=== PATIENT | female | born 1995 | race Caucasian/White ===

== ENCOUNTER 2024-05-27 21:52 | Inpatient (IN) | payer OTHER ==
[~2024-05-27] VITALS: Ht 165.1 cm; Wt 202.8 kg
[2024-05-27 22:17] VITALS: BP_SYST 124; PULSE 100; RESP 20; TEMP 98; O2SAT 97
[2024-05-28 01:10] LABS: BASOPHILS # (AUTO) 0.1 K/uL (0.0-0.2); BASOPHILS % (AUTO) 0.5 % (0.0-2.0); EOSINOPHILS # (AUTO) 0.3 K/uL (0.0-0.4); EOSINOPHILS % (AUTO) 2.8 % (0.0-4.0); HEMATOCRIT 39.5 % (36-48); HEMOGLOBIN 13.4 g/dL (12.0-16.0); LYMPHOCYTES # (AUTO) 2.9 K/uL (1.0-5.5); LYMPHOCYTES % (AUTO) 27.3 % (20.5-51.5); MEAN CORPUSCULAR HEMOGLOBIN 29 pg (27-31); MEAN CORPUSCULAR HGB CONC 34 % (32-36); MEAN CORPUSCULAR VOLUME 84 fL (79.0-98.0); MONOCYTES # (AUTO) 0.7 K/uL (0.0-1.0); MONOCYTES % (AUTO) 6.5 % (1.7-9.3); NEUTROPHILS # (AUTO) 6.8 K/uL (1.8-7.7); NEUTROPHILS % (AUTO) 62.9 % (40.0-70.0); PLATELET COUNT (AUTO) 259 K/uL (130-430); RED BLOOD CELL COUNT(AUTO) 4.69 MIL/uL (4.2-6.2); RED CELL DISTRIBUTION WIDTH 15.2 % (9.0-15.0); WHITE BLOOD COUNT (AUTO) 10.7 K/uL (4.8-10.8)
[2024-05-28 01:28] LABS: ALBUMIN 3.2 g/dL (3.4-4.8); BILIRUBIN,DIRECT 0.1 mg/dL (0.0-0.3); CALCIUM 8.3 mg/dL (8.4-11.0); CREATININE 0.73 mg/dL (0.55-1.30); POTASSIUM 3.8 mmol/L (3.5-5.1); TOTAL BILIRUBIN 0.4 mg/dL (0.0-1.0); TOTAL PROTEIN, SERUM 6.9 g/dL (6.4-8.3)
[2024-05-28] MEDS ORDERED: INSULIN REGULAR, HUMAN 100 UNITS/ML, 3 ML VIAL (humuLIN R) SUBCUT PRN ×2 (01:45→13:30)
[2024-05-28] MEDS: ACETAMINOPHEN 325 MG TABLET PO PRN (01:47)
[2024-05-28] MEDS: cefTRIAXone 1 GM IVPB PREMIX 50 ML IV ONE (01:48)
[2024-05-28] MEDS: DIPHENHYDRAMINE INJ 50 MG/ML VIAL IVP ONE (02:39)
[2024-05-28] MEDS ORDERED: METF-379 PO (02:46)
[2024-05-28 03:13] VITALS: BP_SYST 144; PULSE 96; RESP 20; TEMP 99; O2SAT 96
[2024-05-28] MEDS: AMPICILLIN SODIUM/SULBACTAM NA 3 GM in NS 100 ML IV SCH (04:02)
[2024-05-28] MEDS: AMPICILLIN SODIUM/SULBACTAM NA 3 GM VIAL ONE (05:18)
[2024-05-28] MEDS ORDERED: AMPICILLIN SODIUM/SULBACTAM NA 3 GM VIAL IM SCH (12:00)
[2024-05-28 12:02] VITALS: BP_SYST 135; PULSE 98; RESP 19; TEMP 98.5; O2SAT 98
[2024-05-28] MEDS ORDERED: DEXTROSE 50% JECT 50 ML DISP.SYRIN IVP PRN (13:30)
[2024-05-28 16:11] VITALS: BP_SYST 140; PULSE 97; RESP 20; TEMP 98.7; O2SAT 98
[2024-05-28] MEDS: NYSTATIN 15 GM TOPICAL POWDER TP ONE (16:57)
[2024-05-28] MEDS: metFORMIN HCL 500 MG TABLET PO SCH (17:08)
[2024-05-28] MEDS ORDERED: NALOXONE HCL 0.4 MG/ML AMP (NARCAN) IVP PRN ×3 (17:30)
[2024-05-28] MEDS: HYDROcodone/ACETAMIN 10-325 MG TAB PO ONE (17:45)
[2024-05-28 19:31] VITALS: BP_SYST 125; PULSE 71; RESP 18; TEMP 96.6; O2SAT 100
[2024-05-28 19:32] VITALS: O2SAT 97
[2024-05-28] MEDS: LACTOBACILLUS RHAMNOSUS GG 1 CAP CAPSULE PO SCH (21:09)
[2024-05-28] MEDS: MICAFUNGIN SODIUM 100 MG in NS 100 ML IV SCH (21:09)
[2024-05-28] MEDS: NYSTATIN 15 GM TOPICAL POWDER TP SCH (21:13)
[2024-05-28 22:39] LABS: HCG,QUAL RESULT NEGATIVE (NEGATIVE)
[2024-05-29] VITALS: BP_SYST 130; PULSE 97; RESP 18; TEMP 96.6; O2SAT 98
[2024-05-29] MEDS: HYDROcodone/ACETAMIN 10-325 MG TAB PO PRN (00:50)
[2024-05-29 09:04] VITALS: BP_SYST 122; PULSE 109; RESP 18; TEMP 97.9; O2SAT 100
[2024-05-29 10:00] VITALS: O2SAT 98
[2024-05-29 12:30] VITALS: BP_SYST 128; PULSE 110; RESP 18; TEMP 98.8; O2SAT 96
[2024-05-29 16:00] VITALS: BP_SYST 130; PULSE 94; RESP 18; TEMP 98.8; O2SAT 96
[2024-05-29 19:46] VITALS: BP_SYST 130; PULSE 74; RESP 20; TEMP 96.9; O2SAT 100
[2024-05-30 00:36] VITALS: BP_SYST 126; PULSE 73; RESP 18; TEMP 97.3; O2SAT 100
[2024-05-30 06:58] LABS: PROTHROMBIN TIME 10.1 SECS (9.5-12.5)
[2024-05-30 07:14] LABS: BASOPHILS # (AUTO) 0.1 K/uL (0.0-0.2); BASOPHILS % (AUTO) 0.5 % (0.0-2.0); EOSINOPHILS # (AUTO) 0.3 K/uL (0.0-0.4); EOSINOPHILS % (AUTO) 2.2 % (0.0-4.0); HEMATOCRIT 39.3 % (36-48); HEMOGLOBIN 12.9 g/dL (12.0-16.0); LYMPHOCYTES % (AUTO) 22.7 % (20.5-51.5); MEAN CORPUSCULAR HEMOGLOBIN 28 pg (27-31); MEAN CORPUSCULAR HGB CONC 33 % (32-36); MEAN CORPUSCULAR VOLUME 84 fL (79.0-98.0); MONOCYTES # (AUTO) 0.8 K/uL (0.0-1.0); MONOCYTES % (AUTO) 6.1 % (1.7-9.3); NEUTROPHILS # (AUTO) 8.9 K/uL (1.8-7.7); NEUTROPHILS % (AUTO) 68.5 % (40.0-70.0); PLATELET COUNT (AUTO) 297 K/uL (130-430); RED BLOOD CELL COUNT(AUTO) 4.66 MIL/uL (4.2-6.2); RED CELL DISTRIBUTION WIDTH 14.6 % (9.0-15.0)
[2024-05-30 07:19] LABS: ALBUMIN 2.8 g/dL (3.4-4.8); CALCIUM 8.6 mg/dL (8.4-11.0); CREATININE 0.81 mg/dL (0.55-1.30); POTASSIUM 3.8 mmol/L (3.5-5.1); TOTAL BILIRUBIN 0.5 mg/dL (0.0-1.0); TOTAL PROTEIN, SERUM 6.9 g/dL (6.4-8.3)
[2024-05-30 08:10] VITALS: BP_SYST 132; PULSE 101; RESP 18; TEMP 97.5; O2SAT 95
[2024-05-30 10:05] VITALS: O2SAT 95
[2024-05-30 12:00] VITALS: BP_SYST 127; PULSE 102; RESP 20; TEMP 99; O2SAT 97
[2024-05-30 16:10] VITALS: BP_SYST 123; PULSE 90; RESP 19; TEMP 98.1; O2SAT 98
[2024-05-30 20:00] VITALS: BP_SYST 140; PULSE 95; RESP 22; TEMP 96.2; O2SAT 97
[2024-05-31 07:50] VITALS: BP_SYST 118; PULSE 97; RESP 20; TEMP 97.2; O2SAT 88
[2024-05-31] MEDS: ONDANSETRON 4 MG ODT TAB PO PRN (09:55)
[2024-05-31] MEDS: PANTOPRAZOLE SODIUM 40 MG TAB PO ONE (09:56)
[2024-05-31 10:10] VITALS: O2SAT 97
[2024-05-31 12:13] VITALS: BP_SYST 120; PULSE 85; RESP 20; TEMP 98.1; O2SAT 98
[2024-05-31 16:00] VITALS: BP_SYST 124; PULSE 80; RESP 18; TEMP 97.5; O2SAT 98
[2024-05-31] MEDS: HYDROcodone/ACETAMIN 5-325 MG TAB (NORCO/ VICODIN) PO PRN (16:30)
[2024-05-31 19:10] VITALS: BP_SYST 110; PULSE 75; RESP 18; TEMP 96.5; O2SAT 97
[2024-05-31 20:00] VITALS: O2SAT 97
[2024-06-01] VITALS (7 sets, daily range): BP systolic 112–141; PULSE 82–91; RESP 15–18; TEMP 96.1–98.2; O2SAT 94–98
[2024-06-01 09:05] LABS: BASOPHILS % (AUTO) 0.2 % (0.0-2.0); EOSINOPHILS # (AUTO) 0.4 K/uL (0.0-0.4); EOSINOPHILS % (AUTO) 3.7 % (0.0-4.0); HEMATOCRIT 40.1 % (36-48); HEMOGLOBIN 13.3 g/dL (12.0-16.0); LYMPHOCYTES # (AUTO) 2.3 K/uL (1.0-5.5); LYMPHOCYTES % (AUTO) 24.1 % (20.5-51.5); MEAN CORPUSCULAR HEMOGLOBIN 28 pg (27-31); MEAN CORPUSCULAR HGB CONC 33 % (32-36); MEAN CORPUSCULAR VOLUME 85 fL (79.0-98.0); MONOCYTES # (AUTO) 0.5 K/uL (0.0-1.0); NEUTROPHILS # (AUTO) 6.4 K/uL (1.8-7.7); PLATELET COUNT (AUTO) 307 K/uL (130-430); RED BLOOD CELL COUNT(AUTO) 4.75 MIL/uL (4.2-6.2); WHITE BLOOD COUNT (AUTO) 9.6 K/uL (4.8-10.8)
[2024-06-01] MEDS: PANTOPRAZOLE SODIUM 40 MG TAB PO SCH (09:21)
[2024-06-01 09:34] LABS: ALBUMIN 2.8 g/dL (3.4-4.8); CALCIUM 8.6 mg/dL (8.4-11.0); CREATININE 0.81 mg/dL (0.55-1.30); POTASSIUM 3.8 mmol/L (3.5-5.1); TOTAL BILIRUBIN 0.4 mg/dL (0.0-1.0); TOTAL PROTEIN, SERUM 6.8 g/dL (6.4-8.3)
[2024-06-01] MEDS ORDERED: DOXY100C5 PO (17:54)
[2024-06-01] MEDS ORDERED: DIF100 PO (17:57)
[2024-06-02] VITALS: BP_SYST 116; PULSE 82; RESP 16; TEMP 96.3; O2SAT 96
[2024-06-02 08:09] VITALS: BP_SYST 142; PULSE 87; RESP 15; TEMP 97.9; O2SAT 95
[2024-06-02 10:00] VITALS: O2SAT 95
[2024-06-02 11:51] VITALS: BP_SYST 135; PULSE 60; RESP 17; TEMP 98.2; O2SAT 100
[2024-06-02 12:21] VITALS: BP_SYST 135; PULSE 60; RESP 17; TEMP 98.2; O2SAT 100
== END 2024-06-02 13:00 | disposition home health service (06) | DRG 383 ==
LOC: SED 21:52 → SMU 05-28 02:03 → OBSVTOIN 05-28 02:04 → SMU 05-28 02:24
PROVIDERS: ADMIT Internal Medicine; ATTEND Internal Medicine
DX: L02.211 Cutaneous abscess of abdominal wall (principal); E44.1 Mild protein-calorie malnutrition; Z68.45 Body mass index [BMI] 70 or greater, adult; E66.01 Morbid (severe) obesity due to excess calories; L03.311 Cellulitis of abdominal wall; E11.9 Type 2 diabetes mellitus without complications; Z87.09 Personal history of other diseases of the respiratory system; Z87.01 Personal history of pneumonia (recurrent); Z79.84 Long term (current) use of oral hypoglycemic drugs; Z88.8 Allergy status to other drugs, medicaments and biological substances
CPT/HCPCS: 36415; 80048; 80053; 80076; 82948; 83037; 83605; 84703; 85025; 85610; 85730; 87040; 87070; 99285; G0378; J0295; J0696; J1200; J2248; J7050; Q0162